=== PATIENT | female | born 1980 | race American Indian/Alaskan Native ===

== ENCOUNTER 2019-11-04 08:29 | Inpatient (IN) | payer OTHER ==
[2019-11-04] MEDS ORDERED: LACTATED RINGERS 1,000 ML ONE (09:34)
[2019-11-04] MEDS: LACTATED RINGERS 1,000 ML IV SCH ×3 (09:40→20:36)
[2019-11-04] MEDS ORDERED: TERBUTALINE 1 MG/1 ML INJ SUB-Q PRN (09:50)
[2019-11-04] MEDS ORDERED: LIDOCAINE (2%) 20 MG/1 ML VIAL 20 ML MDV INFILTRATI NR (09:50)
[2019-11-04] MEDS ORDERED: TERBUTALINE 1 MG/1 ML INJ IVP PRN (09:50)
[2019-11-04] MEDS ORDERED: ePHEDrine SULFATE 50 MG/1 ML INJ IV PRN ×2 (10:00→21:37)
[2019-11-04 10:03] LABS: Hematocrit 34.7 % (30.3-42.9); Hemoglobin 11.9 gm/dl (10.1-14.3); Mean Corpuscular HGB Conc 34 % (30-34); Mean Corpuscular Volume 79 fl (79-97); Platelet Count 142 K/mm3 (140-440); Red Blood Count 4.37 M/mm3 (3.65-5.03); Red Cell Distribution Width 15.2 % (13.2-15.2)
[2019-11-04] MEDS ORDERED: OXYTOCIN DRIP 30 UNITS/500 ML BAG IV SCH (11:00)
--- NOTE | 2019-11-04 13:08 | History and Physical Report ---
History of Present Illness Date of examination: 11/04/19 Date of admission: November 04, 2019 Chief complaint: Induction of labor History of present illness: 39-year-old -0-0-2 at 41+0 weeks who presents for induction of labor secondary to postdates. Her course is complicated by advanced maternal age and a history of a leiomyoma in low borderline platelet count. The patient has been followed during her by maternal- medicine. Past History Past Medical History: other (Sickle cell trait) Past Surgical History: appendectomy Social history: - Obstetrical History Expected Date of Delivery: 10/28/19 Actual Gestation: 41 Week(s) 0 Day(s) : 3 Para: 2 Hx # Term Pregnancies: 2 Number of Pregnancies: 0 Spontaneous Abortions: 0 Induced : 0 Number of Living Children: 2 Medications and Allergies Allergies Allergy/AdvReac Type Severity Reaction Status Date / Time No Known Allergies Allergy Verified 01/06/16 08:29 Home Medications Medication Instructions Recorded Confirmed Last Taken Type Pnv Plus Multivit Tab 1 caplet PO QDAY 11/27/17 11/04/19 11/03/19 History HYDROcodone/APAP 5-325 [[place] 1 each PO Q6HR PRN #30 tablet 11/28/17 11/04/19 Unknown Rx 5/325] Ibuprofen [Motrin] 800 mg PO Q8HR PRN #30 tablet 11/28/17 11/04/19 Unknown Rx Active Meds: Active Medications Ephedrine Sulfate (Ephedrine Sulfate) 10 mg IV Q2M PRN PRN Reason: Hypotension Lactated Ringer's (Lactated Ringers) 1,000 mls @ 125 mls/hr IV DIRECT BEHZAD Last Admin: 11/04/19 09:40 Dose: 125 mls/hr Documented by: Oxytocin/Sodium Chloride (Pitocin/Ns 30 Unit/500ml) 30 units in 500 mls @ 4 mls/hr IV TITR BEHZAD; Protocol Last Titration: 11/04/19 12:32 Dose: 16 mls/hr, 16 mls/hr Documented by: Oxytocin/Sodium Chloride (Pitocin/Ns 20 Unit/1000ml Drip) 20 units in 1,000 mls @ 125 mls/hr IV DIRECT BEHZAD Lidocaine (Xylocaine 2%) 20 ml INFILTRATI ONCE NR Stop: 11/04/19 23:59 Mineral Oil (Mineral Oil) 30 ml PO QHS PRN PRN Reason: Constipation Terbutaline Sulfate (Brethine) 0.25 mg SUB-Q ONCE PRN PRN Reason: Hyperstimulation/Hypertonicity Stop: 11/04/19 23:59 Terbutaline Sulfate (Brethine) 0.25 mg IVP ONCE PRN PRN Reason: Hyperstimulation/Hypertonicity Stop: 11/04/19 23:59 Review of Systems All systems: negative Genitourinary: no vaginal bleeding, no leakage of fluid - Vital Signs Vital signs: Vital Signs Temp Resp 98.1 F 18 11/04/19 08:57 11/04/19 08:57 Temp Pulse Resp BP Pulse Ox 98.1 F 96 H 18 113/65 98 11/04/19 08:57 11/04/19 12:58 11/04/19 08:57 11/04/19 08:59 11/04/19 12:58 - Physical Exam Breasts: Positive: deferred Cardiovascular: Regular rate Lungs: Positive: Clear to auscultation Abdomen: Positive: normal appearance Results Result Diagrams: 11/04/19 09:35 Abnormal lab results 11/04/19 Range/Units 09:35 MCH 27 L (28-32) pg All other labs normal. Assessment and Plan - Patient Problems (1) Post-term Current Visit: Yes Status: Acute Plan to address problem: Admit for induction of labor (2) Advanced maternal age (AMA) in Current Visit: Yes Status: Acute
--- NOTE | 2019-11-04 18:07 | Ultrasound Report ---
Limited second trimester OB ultrasound INDICATION: Evaluate presentation only, labor FINDINGS: There is a single living intrauterine fetus in cephalic presentation. The heart rate is detected at 133 bpm. Signer Name: Nick Merino MD Signed: 11/04/2019 6:02 PM Workstation Name: [id number]
[2019-11-04] MEDS: BUTORPHANOL 2 MG/1 ML INJ IV PRN ×2 (18:22→20:31)
[2019-11-04] MEDS ORDERED: fentaNYL-BUPIV 2 MCG/ML-0.125% 200 MCG/100 ML BAG EPIDURAL ONE (21:02)
[2019-11-04] MEDS ORDERED: DEXMEDETOMIDINE 200 MCG/2 ML VIAL IV ONE (21:02)
--- NOTE | 2019-11-04 21:34 | Anesthesia Consultation ---
Anesthesia Consult and Med Hx Date of service: 11/04/19 - Airway Anesthetic Teeth Evaluation: Good ROM Head & Neck: Adequate Mental/Hyoid Distance: Adequate Mallampati Class: Class II Intubation Access Assessment: Probably Good - Pulmonary Exam CTA: Yes - Cardiac Exam Cardiac Exam: RRR - Pre-Operative Health Status ASA Pre-Surgery Classification: ASA2 Proposed Anesthetic Plan: Epidural - Pulmonary Hx Asthma: No COPD: No Hx Pneumonia: No - Cardiovascular System Hx Hypertension: No - Central Nervous System Hx Seizures: No Hx Psychiatric Problems: No - Endocrine Hx Renal Disease: No Hx End Stage Renal Disease: No Hx Hypothyroidism: No Hx Hyperthyroidism: No - Hematic Hx Anemia: No Hx Sickle Cell Disease: No - Other Systems Hx Alcohol Use: No
[2019-11-04] MEDS ORDERED: NALOXONE 2 MG/2 ML INJ IV PRN (21:37)
--- NOTE | 2019-11-04 21:37 | Progress Note ---
Labor Epidural - Labor Epidural Start Time: 21:04 Stop Time: 20:27 Performed by:: NASRIN SOTO Procedure: Patient is requesting epidural for labor pain. H&P, and labs reviewed. Procedure explained, questions answered, consent obtained. Patient in sitting position with blood pressure cuff and pulse ox on and working. Timeout performed immediately before start of procedure. Sterile betadine prep/drape. 3 mL 1% lidocaine skin wheal unsuccessful attempt at L3-L4 and then success at L2-L3. 18-gauge Touhy epidural needle advanced to [id number] with saline at [7] cm. Epidural dexmedetomidine [30] mcg administered. Epidural catheter advanced to [12] cm, negative aspiration for blood and csf, negative test dose 3 ml 1.5% lidocaine with epinephrine. Sterile steri-strips and tegaderm applied, followed by tape reinforcement. Patient c/o pain during procedure but states she wishes to procede.
[2019-11-04] MEDS ORDERED: fentaNYL-BUPIV 2 MCG/ML-0.125% 200 MCG/100 ML BAG EPIDURAL SCH (22:00)
[2019-11-04] MEDS ORDERED: MINERAL OIL 30 ML ORAL LIQD PO PRN (22:00)
[2019-11-04] MEDS: OXYTOCIN 20 UNIT/1000ML DRIP 20 UNITS/1,000 ML BAG IV SCH (23:25)
[2019-11-04] MEDS ORDERED: HYDROcodone/ACETAMINOPHEN 5-325 MG TAB PO PRN (23:28)
[2019-11-04] MEDS ORDERED: PROMETHAZINE 25 MG RECT SUPP PR PRN (23:28)
[2019-11-04] MEDS ORDERED: ACETAMINOPHEN 325 MG TAB PO PRN (23:28)
[2019-11-04] MEDS ORDERED: WITCH HAZEL/ GLYCERIN PAD TP PRN (23:28)
[2019-11-04] MEDS ORDERED: ONDANSETRON 4 MG/2 ML INJ IV PRN (23:28)
[2019-11-04] MEDS ORDERED: diphenhydrAMINE 25 MG CAP PO PRN (23:28)
[2019-11-04] MEDS ORDERED: PROMETHAZINE 25 MG TAB PO PRN (23:28)
[2019-11-04] MEDS ORDERED: LANOLIN/ZINC/DIMETHICONE (LANSINOH) 7 GM TP PRN (23:28)
[2019-11-04] MEDS ORDERED: MAGNESIUM HYDROXIDE (MOM) ORAL LIQD UDC PO PRN (23:28)
--- NOTE | 2019-11-04 23:31 | Procedure Note ---
OB Delivery Note - Delivery Date of Delivery: 11/04/19 Surgeon: DEEPTI HECTOR Estimated blood loss: 100cc - Vaginal Delivery presentation: vertex Delivery position: OA Intrapartum events: none Delivery augmentation: pitocin Delivery monitor: external FHT, external uterine, internal uterine Route of delivery: Delivery placenta: spontaneous Delivery cord: 3 umbilical vessels Episiotomy: none Delivery laceration: none Anesthesia: epidural Delivery comments: The patient progressed to complete complete +1 and post to deliver a live-born female infant with Apgars of 8 and 9 weight 7 pounds 15 ounces. After delivery of the head the shoulders delivered without difficulty. The cord was clamped and cut x2 and the was placed on the warmer. The placenta delivered spontaneously intact with a three-vessel cord. No lacerations were noted. Estimated blood loss of 100 mL - Infant A at 1 minute: 8 at 5 minutes: 9 Gender: Female (Weight 7 pounds 15 ounces)
[2019-11-05] MEDS: OXYTOCIN 20 UNIT/1000ML DRIP 20 UNITS/1,000 ML BAG IV SCH
[2019-11-05] MEDS: LACTATED RINGERS 1,000 ML IV SCH
[2019-11-05] MEDS: IBUPROFEN 600 MG TAB PO SCH ×3 (06:17→17:25)
--- NOTE | 2019-11-05 07:46 | Progress Note ---
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 P: Routine pp care Discharge to home today or upon discharge Subjective - Subjective Date of service: 11/05/19 Principal diagnosis: s/p Interval history: Pt is PPD1 s/p Patient reports: appetite normal, voiding normally, pain well controlled, ambulating normally [place]: doing well, bottle feeding Objective - Vital Signs Latest vital signs: Vital Signs Temp Pulse Resp BP BP Pulse Ox 11/05/19 01:35 97.8 F 92 H 18 113/75 11/05/19 01:15 98.3 F 11/05/19 00:41 88 130/71 11/05/19 00:26 86 131/72 11/04/19 23:57 91 H 98 11/04/19 23:56 86 125/73 11/04/19 23:52 89 98 11/04/19 23:47 89 98 11/04/19 23:42 89 98 11/04/19 23:41 91 H 95/66 89 11/04/19 23:37 89 99 11/04/19 23:31 94 H 98 11/04/19 23:30 97.6 F 16 11/04/19 23:26 94 H 133/67 98 11/04/19 23:21 94 H 100 11/04/19 23:16 88 100 11/04/19 23:11 96 H 97/65 95 11/04/19 23:06 91 H 99 11/04/19 23:01 90 100 11/04/19 22:56 86 101/66 99 11/04/19 22:51 89 98 11/04/19 22:46 93 H 98 11/04/19 22:41 94 H 95/63 100 11/04/19 22:36 94 H 99 11/04/19 22:31 96 H 100 11/04/19 22:27 94 H 100/60 11/04/19 22:26 94 H 98 11/04/19 22:21 91 H 95 11/04/19 22:16 92 H 97 11/04/19 22:15 90 91/54 11/04/19 22:11 95 H 96/55 96 11/04/19 22:06 98 H 97 11/04/19 22:01 96 H 97 11/04/19 21:56 96 H 106/65 98 05 21:51 100 H 97 11/04/19 21:46 103 H 97 11/04/19 21:45 97.9 F 05 21:41 98 H 97 11/04/19 21:40 94 H 109/61 05 21:37 96 H 107/58 11/04/19 21:36 98 H 98 11/04/19 21:34 100 H 116/65 05 21:31 105 H 99 11/04/19 21:26 102 H 100 11/04/19 21:21 101 H 98 11/04/19 21:16 98 H 100 11/04/19 21:11 103 H 99 11/04/19 21:06 106 H 100 11/04/19 20:59 99 H 134/75 11/04/19 20:33 106 H 100 11/04/19 20:31 95 H 86 11/04/19 20:28 102 H 98 11/04/19 20:23 106 H 99 11/04/19 20:18 102 H 100 11/04/19 19:49 93 H 119/70 11/04/19 19:32 94 H 100 11/04/19 19:27 102 H 100 11/04/19 19:15 98.1 F 16 11/04/19 18:22 18 11/04/19 17:19 105 H 99 11/04/19 17:18 100 H 127/64 11/04/19 17:14 105 H 100 11/04/19 17:09 110 H 72 L 11/04/19 17:05 106 H 93 11/04/19 17:04 102 H 99 11/04/19 16:59 99 H 99 11/04/19 16:54 102 H 99 11/04/19 16:49 102 H 99 05 16:44 94 H 100 11/04/19 16:39 103 H 98 11/04/19 16:34 107 H 98 11/04/19 16:29 97 H 98 11/04/19 16:24 98 H 99 05 16:19 99 H 99 11/04/19 16:14 100 H 98 11/04/19 16:09 100 H 100 05 16:04 98 H 99 05 15:59 100 H 99 05 15:58 90 89 05 15:54 105 H 96 05 15:49 103 H 99 05 15:46 109 H 81 L 05 15:44 102 H 99 05 15:39 102 H 99 05 15:34 98 H 98 05 15:29 98 H 100 11/04/19 15:24 97 H 99 11/04/19 15:19 94 H 99 11/04/19 15:14 99 H 98 11/04/19 15:09 98 H 98 11/04/19 15:06 98.0 F 11/04/19 12:58 96 H 98 11/04/19 12:57 90 90 11/04/19 12:53 88 98 11/04/19 12:48 89 98 11/04/19 12:43 102 H 100 11/04/19 12:38 92 H 99 11/04/19 12:33 88 100 11/04/19 12:28 88 99 11/04/19 12:23 90 99 11/04/19 12:18 90 99 05 12:13 90 100 11/04/19 12:08 94 H 99 11/04/19 12:03 84 100 11/04/19 11:58 93 H 99 11/04/19 11:53 90 99 11/04/19 11:48 88 97 11/04/19 11:43 96 H 97 11/04/19 11:38 90 98 11/04/19 11:33 101 H 97 11/04/19 11:28 91 H 97 11/04/19 11:23 97 H 97 11/04/19 11:18 91 H 97 05 11:13 100 H 96 11/04/19 11:08 100 H 97 11/04/19 11:04 104 H 92 05 11:03 90 05 10:58 113 H 98 11/04/19 10:53 104 H 98 05 10:48 101 H 97 05 10:43 96 H 98 05 10:38 105 H 99 05 10:23 93 H 99 05 10:18 102 H 98 11/04/19 10:13 96 H 99 11/04/19 10:08 95 H 99 11/04/19 10:03 94 H 100 11/04/19 09:58 97 H 97 11/04/19 09:53 97 H 97 11/04/19 09:48 98 H 97 11/04/19 09:43 97 H 97 11/04/19 09:38 96 H 96 11/04/19 09:33 98 H 97 11/04/19 09:28 97 H 97 11/04/19 09:23 107 H 97 11/04/19 09:18 102 H 97 11/04/19 09:13 91 H 96 11/04/19 09:08 98 H 97 11/04/19 09:03 109 H 98 11/04/19 08:59 100 H 113/65 11/04/19 08:58 109 H 98 11/04/19 08:57 98.1 F 18 Intake and Output 11/04/19 11/04/19 11/05/19 15:59 23:59 07:59 Intake Total 32.201 1794.467 312.917 Output Total 900 1300 Balance 32.201 894.467 -987.083 Intake: IV 32.201 1794.467 72.917 Lactated Ringers 1,000 ml 1666.667 @ 125 mls/hr IV DIRECT BEHZAD Rx#:[id number] PITOCin/NS 20 UNIT/1000ML 72.917 DRIP 20 units In 1,000 ml @ 125 mls/hr IV DIRECT BEHZAD Rx#:[id number] PITOCin/NS 30 UNIT/500ML 32.201 127.8 30 units In 500 ml @ 4 mls/hr IV TITR BEHAZD Rx#: [id number] Oral 240 Output: Urine 900 700 Indwelling Catheter 300 Void 600 700 Other 600 Other: Total, Intake Amount 240 Total, Output Amount 300 600 # Voids Void 1 1 Weight 250 lb Estimated Blood Loss 100 - Exam Lungs: Present: Normal air movement Abdomen: Present: soft. Absent: distention Uterus: Present: firm, fundal height below umbilicus. Absent: bogginess Extremities: Present: normal - Labs Labs: Abnormal lab results 11/04/19 Range/Units 09:35 MCH 27 L (28-32) pg
--- NOTE | 2019-11-05 07:48 | Discharge Summary ---
Providers - Providers Date of Admission: 11/04/19 23:28 Date of discharge: 11/05/19 Attending physician: DEEPTI HECTOR Primary care physician: DEEPTI HECTOR Hospitalization Reason for admission: induction of labor (post-dates), IUP at term Delivery: Episiotomy: none Laceration: none Other procedures: none complications: none Discharge diagnosis: IUP at term delivered Hospital course: Pt arrived for induction of labor and progressed to . course uncomplicated. Condition at discharge: Good Disposition: DC-01 TO HOME OR SELFCARE Plan - Discharge Medications Prescriptions: Ibuprofen [Motrin 600 MG tab] 600 mg PO Q6HR #90 tablet - Provider Discharge Summary Activity: routine, no sex for 6 weeks, no heavy lifting 4 weeks, no strenuous exercise Diet: routine Instructions: routine Additional instructions: [] Smoking cessation referral if applicable(refer to patient education folder for contact #) [] Refer to [facility] Booklet Call your doctor immediately for: * Fever > 100.5 * Heavy vaginal bleeding ( >1 pad per hour) * Severe persistent headache * Shortness of breath * Reddened, hot, painful area to leg or breast * Drainage or odor from incision. * Keep incision clean and dry at all times and follow doctor's instructions regarding bathing/showering - Follow up plan Follow up: DEEPTI HECTOR MD [Primary Care Provider] - 14 Days (Please call [facility] to schedule appointment.)
[2019-11-05 13:41] LABS: Hematocrit 34.4 % (30.3-42.9); Hemoglobin 11.4 gm/dl (10.1-14.3)
--- NOTE | 2019-11-05 15:59 | Post Anesthesia Evaluation ---
- Post Anesthesia Evaluation Patient Participated: Yes Airway Patent: Yes Stable Respiratory Function: Yes Nausea/Vomiting: No Temp > 96.8F: Yes Pain Manageable: Yes Adequeate Hydration: Yes Anesthesia Complications: No Block Receding Appropriately: Yes
[2019-11-06] MEDS: IBUPROFEN 600 MG TAB PO SCH ×3 (00:20→14:10)
[2019-11-06 13:05] VITALS: BP 126/82
== END 2019-11-06 15:05 | disposition home or self-care (01) | DRG 807 ==
LOC: TRG 08:29 → LD 08:30 → TRG 23:28 → OB 11-05 01:22
PROVIDERS: ADMIT Obstetrics & Gynecology; ATTEND Obstetrics & Gynecology
PROC: 10E0XZZ Delivery of Products of Conception, External Approach (ICD-10-PCS; principal; 2019-11-04)
PROC: 3E0R3BZ Introduction of Anesthetic Agent into Spinal Canal, Percutaneous Approach (ICD-10-PCS; 2019-11-04)
PROC: 00HU33Z Insertion of Infusion Device into Spinal Canal, Percutaneous Approach (ICD-10-PCS; 2019-11-04)
DX: O48.0 Post-term pregnancy (principal); Z37.0 Single live birth; Z3A.41 41 weeks gestation of pregnancy; Z90.49 Acquired absence of other specified parts of digestive tract
CPT/HCPCS: 36415; 76815; 85014; 85018; 85027; 86592; 86850; 86900; 86901; G0378; J0595; J2590; J3490; J7120

== ENCOUNTER 2021-12-15 08:23 | Inpatient (IN) | payer OTHER ==
--- NOTE | 2021-12-15 08:40 | History and Physical Report ---
History of Present Illness Date of examination: 12/15/21 Date of admission: 12/15/21 08:23 Chief complaint: IOL secondary to GDM; LGA History of present illness: 41yo, @ 38.4 wks, initiated care with [facility] glass cut off tender at 11.4 wks gestation. has been complicated by GDM (non-compliant with glucose monitoring, does not accept diagnosis), +anti-M Ab screen (initial titer 0, declined repeat at 28 wks), AMA, uterine fibroid, LGA fetus, sickle cell trait and obesity. Presents to [facility] for scheduled IOL secondary to GDM, LGA and obesity. Reports +FM. Denies any VB or LOF. Labs: A+, antibody positive; rubella immune; VDRL negative; urine culture negative; HBsAg negative; HIV negative; HSV2 negative; GC/Chlamydia/Trichomonas negative; 1 hr gtt - 193, 3 hr gtt - 76, 189, 160, 109; GBS negative. Past History Past Medical History: no pertinent history Past Surgical History: appendectomy (1997) Family/Genetic History: diabetes (Mother) Social history: , lives with family, full code. denies: smoking, alcohol abuse, prescription drug abuse, IV drug use - Obstetrical History Expected Date of Delivery: 12/25/21 Actual Gestation: 38 Week(s) 4 Day(s) : 4 Para: 3 Hx # Term Pregnancies: 3 Number of Pregnancies: 0 Spontaneous Abortions: 0 Induced : 0 Number of Living Children: 3 #1 year: 2,017 Birthweight: 3.118 kg Method of Delivery: Vaginal Gestational age at delivery: 39 Complications: none #2 year: 2,018 Birthweight: 4.252 kg Method of Delivery: Vaginal Gestational age at delivery: 40 Complications: none, other (LGA) #3 year: 2,020 Method of Delivery: Vaginal Gestational age at delivery: 40 Complications: none Medications and Allergies Allergies Allergy/AdvReac Type Severity Reaction Status Date / Time No Known Allergies Allergy Verified 01/06/16 08:29 Home Medications Medication Instructions Recorded Confirmed Last Taken Type Pnv Plus Multivit Tab 1 caplet PO QDAY 11/27/17 11/04/19 11/03/19 History HYDROcodone/APAP 5-325 [[place] 1 each PO Q6HR PRN #30 tablet 11/28/17 11/04/19 Unknown Rx 5/325] Ibuprofen [Motrin] 800 mg PO Q8HR PRN #30 tablet 11/28/17 11/04/19 Unknown Rx Ibuprofen [Motrin 600 MG tab] 600 mg PO Q6HR #90 tablet 11/05/19 Unknown Rx Docusate Sodium [Colace] 100 mg PO BID PRN #60 capsule 11/06/19 Unknown Rx Ferrous Sulfate [Feosol 325 MG tab] 325 mg PO BID #60 tablet 11/06/19 Unknown Rx - Physical Exam Breasts: Positive: normal Cardiovascular: Regular rate Lungs: Positive: Normal air movement Abdomen: Positive: other (gravid) Genitourinary (Female): Positive: normal external genitalia, normal perenium Uterus: Positive: enlarged (S>D) Anus/Rectum: Positive: normal perianal skin Extremities: Positive: edema - Obstetrical FHR: category 1 Uterine Contraction Monitor Mode: External Cervical Dilatation: 3 (vertex) Cervical Effacement Percentage: 50 station: -3 Uterine Contraction Frequency (min): 4-5 Uterine Contraction Pattern: Irregular Uterine Tone Measurement Phase: Resting Uterine Contraction Intensity: Mild Results All other labs normal. Assessment and Plan - Patient Problems (1) GDM (gestational diabetes mellitus) Current Visit: Yes Status: Acute Qualifiers: Gestational diabetes mellitus control: unspecified Trimester: third trimester Qualified Code(s): O24.419 - Gestational diabetes mellitus in , unspecified control Plan to address problem: Refused blood glucose monitoring since diagnoses IOL, Pitocin titration as tolerated Pain meds as desired per orders Anticipate (2) Obesity affecting Current Visit: Yes Status: Acute (3) Advanced maternal age (AMA) in Current Visit: No Status: Acute (4) LGA (large for gestational age) fetus Current Visit: Yes Status: Acute (5) Sickle cell trait Current Visit: Yes Status: Acute
[2021-12-15] MEDS ORDERED: CARBOPROST TROMETHAMINE 250 MCG/1 ML INJ IM PRN (09:30)
[2021-12-15] MEDS ORDERED: ACETAMINOPHEN 325 MG TAB PO PRN (09:30)
[2021-12-15] MEDS ORDERED: ePHEDrine SULFATE 50 MG/1 ML INJ IV PRN (09:30)
[2021-12-15] MEDS ORDERED: TERBUTALINE 1 MG/1 ML INJ SUB-Q PRN (09:30)
[2021-12-15] MEDS ORDERED: METHYLERGONOVINE MALEATE 0.2 MG/ML VIAL IM PRN (09:30)
[2021-12-15] MEDS ORDERED: ONDANSETRON 4 MG/2 ML INJ IV PRN (09:30)
[2021-12-15] MEDS ORDERED: fentaNYL 100 MCG/2 ML INJ IV PRN (09:30)
[2021-12-15] MEDS ORDERED: miSOPROStol 200 MCG TAB PR PRN (09:30)
[2021-12-15] MEDS ORDERED: LOPERAMIDE 2 MG CAP PO PRN (09:30)
[2021-12-15] MEDS ORDERED: BUTORPHANOL 2 MG/1 ML INJ IV PRN (09:30)
[2021-12-15] MEDS ORDERED: OXYTOCIN 10 UNIT/1 ML INJ IM PRN (10:00)
[2021-12-15] MEDS ORDERED: OXYTOCIN DRIP 30 UNITS/500 ML BAG IV SCH ×2 (10:00)
[2021-12-15] MEDS ORDERED: LIDOCAINE (2%) 20 MG/1 ML VIAL 20 ML MDV INFILTRATI SCH (10:00)
[2021-12-15] MEDS: LACTATED RINGERS 1,000 ML IV SCH ×2 (10:19→18:16)
[2021-12-15 10:27] LABS: Hematocrit 33.5 % (30.3-42.9); Hemoglobin 10.6 gm/dl (10.1-14.3); Mean Corpuscular HGB Conc 32 % (30-34); Mean Corpuscular Volume 75 fl (79-97); Platelet Count 146 K/mm3 (140-440); Red Blood Count 4.46 M/mm3 (3.65-5.03); Red Cell Distribution Width 16.3 % (13.2-15.2)
--- NOTE | 2021-12-15 19:59 | Progress Note ---
Assessment and Plan - Patient Problems (1) GDM (gestational diabetes mellitus) Current Visit: Yes Status: Acute Qualifiers: Gestational diabetes mellitus control: unspecified Trimester: third trimester Qualified Code(s): O24.419 - Gestational diabetes mellitus in , unspecified control Plan to address problem: Pt declines to take a Pitocin break and eat at this time She wishes to continue titration as tolerated Pain meds as desired per orders Continue to closely monitor maternal/ wellbeing (2) Obesity affecting Current Visit: Yes Status: Acute (3) Advanced maternal age (AMA) in Current Visit: No Status: Acute (4) LGA (large for gestational age) fetus Current Visit: Yes Status: Acute (5) Sickle cell trait Current Visit: Yes Status: Acute Subjective - Subjective Date of service: 12/15/21 Principal diagnosis: IOL;GDM; MO Interval history: 41yo, @ 38.4 wks, initiated care with [facility] lens cementer at 11.4 wks gestation. has been complicated by GDM (non-compliant with glucose monitoring, does not accept diagnosis), +anti-M Ab screen (initial titer 0, declined repeat at 28 wks), AMA, uterine fibroid, LGA fetus, sickle cell trait and obesity. Presents to [facility] for scheduled IOL secondary to GDM, LGA and obesity. Reports +FM. Denies any VB or LOF. Labs: A+, antibody positive; rubella immune; VDRL negative; urine culture negative; HBsAg negative; HIV negative; HSV2 negative; GC/Chlamydia/Trichomonas negative; 1 hr gtt - 193, 3 hr gtt - 76, 189, 160, 109; GBS negative. Patient reports: movement normal, contractions ("they are light"), no new complaints, no vaginal bleeding Objective - Vital Signs Vital Signs: Vital Signs - 12hr 12/15/21 12/15/21 12/15/21 09:03 09:05 09:11 Temperature Pulse Rate 103 H 78 Respiratory Rate Blood Pressure 117/65 O2 Sat by Pulse 80 L 90 Oximetry O2 Sat by Pulse Oximetry [ Bilateral Throughout] 12/15/21 12/15/21 12/15/21 09:14 09:19 09:24 Temperature Pulse Rate 101 H 103 H 104 H Respiratory Rate Blood Pressure O2 Sat by Pulse 87 97 99 Oximetry O2 Sat by Pulse Oximetry [ Bilateral Throughout] 12/15/21 12/15/21 12/15/21 09:29 09:34 09:39 Temperature Pulse Rate 102 H 104 H 105 H Respiratory Rate Blood Pressure 110/55 O2 Sat by Pulse 97 98 97 Oximetry O2 Sat by Pulse Oximetry [ Bilateral Throughout] 12/15/21 12/15/21 12/15/21 09:44 09:49 09:54 Temperature Pulse Rate 103 H 96 H 97 H Respiratory Rate Blood Pressure O2 Sat by Pulse 97 97 96 Oximetry O2 Sat by Pulse Oximetry [ Bilateral Throughout] 12/15/21 12/15/21 12/15/21 09:59 10:04 10:08 Temperature Pulse Rate 101 H 102 H 100 H Respiratory Rate Blood Pressure 127/81 O2 Sat by Pulse 97 97 Oximetry O2 Sat by Pulse Oximetry [ Bilateral Throughout] 12/15/21 12/15/21 12/15/21 10:09 10:14 10:19 Temperature Pulse Rate 101 H 98 H 102 H Respiratory Rate Blood Pressure O2 Sat by Pulse 96 98 98 Oximetry O2 Sat by Pulse Oximetry [ Bilateral Throughout] 12/15/21 12/15/21 12/15/21 10:24 10:29 10:34 Temperature Pulse Rate 106 H 101 H 107 H Respiratory Rate Blood Pressure O2 Sat by Pulse 98 97 99 Oximetry O2 Sat by Pulse Oximetry [ Bilateral Throughout] 12/15/21 12/15/21 12/15/21 10:39 10:44 10:49 Temperature Pulse Rate 102 H 103 H 100 H Respiratory Rate Blood Pressure 129/74 O2 Sat by Pulse 97 97 97 Oximetry O2 Sat by Pulse Oximetry [ Bilateral Throughout] 12/15/21 12/15/21 12/15/21 10:54 10:59 11:00 Temperature Pulse Rate 99 H 102 H Respiratory Rate Blood Pressure O2 Sat by Pulse 98 98 Oximetry O2 Sat by Pulse 98 Oximetry [ Bilateral Throughout] 12/15/21 12/15/21 12/15/21 11:04 11:09 11:10 Temperature Pulse Rate 100 H 101 H 100 H Respiratory Rate Blood Pressure 120/65 O2 Sat by Pulse 97 98 Oximetry O2 Sat by Pulse Oximetry [ Bilateral Throughout] 12/15/21 12/15/21 12/15/21 11:14 11:19 11:24 Temperature Pulse Rate 104 H 104 H 102 H Respiratory Rate Blood Pressure O2 Sat by Pulse 98 99 98 Oximetry O2 Sat by Pulse Oximetry [ Bilateral Throughout] 12/15/21 12/15/21 12/15/21 11:29 11:34 11:38 Temperature Pulse Rate 98 H 99 H 100 H Respiratory Rate Blood Pressure 131/78 O2 Sat by Pulse 97 99 Oximetry O2 Sat by Pulse Oximetry [ Bilateral Throughout] 12/15/21 12/15/21 12/15/21 11:39 11:44 11:49 Temperature Pulse Rate 100 H 101 H 95 H Respiratory Rate Blood Pressure O2 Sat by Pulse 98 98 96 Oximetry O2 Sat by Pulse Oximetry [ Bilateral Throughout] 12/15/21 12/15/21 12/15/21 11:54 11:59 12:01 Temperature Pulse Rate 102 H 99 H 80 Respiratory Rate Blood Pressure O2 Sat by Pulse 97 97 79 L Oximetry O2 Sat by Pulse Oximetry [ Bilateral Throughout] 12/15/21 12/15/21 12/15/21 12:08 12:11 12:13 Temperature Pulse Rate 77 103 H Respiratory Rate Blood Pressure 130/68 O2 Sat by Pulse 89 78 L Oximetry O2 Sat by Pulse Oximetry [ Bilateral Throughout] 12/15/21 12/15/21 12/15/21 12:16 12:21 12:26 Temperature Pulse Rate 103 H 97 H 96 H Respiratory Rate Blood Pressure O2 Sat by Pulse 97 96 96 Oximetry O2 Sat by Pulse Oximetry [ Bilateral Throughout] 12/15/21 12/15/21 12/15/21 12:31 12:36 12:39 Temperature Pulse Rate 101 H 104 H 100 H Respiratory Rate Blood Pressure 118/75 O2 Sat by Pulse 97 97 Oximetry O2 Sat by Pulse Oximetry [ Bilateral Throughout] 12/15/21 12/15/21 12/15/21 12:41 12:46 12:51 Temperature Pulse Rate 96 H 101 H 96 H Respiratory Rate Blood Pressure O2 Sat by Pulse 97 98 95 Oximetry O2 Sat by Pulse Oximetry [ Bilateral Throughout] 12/15/21 12/15/21 12/15/21 12:56 12:57 13:01 Temperature Pulse Rate 98 H 96 H 103 H Respiratory Rate Blood Pressure O2 Sat by Pulse 95 93 96 Oximetry O2 Sat by Pulse Oximetry [ Bilateral Throughout] 12/15/21 12/15/21 12/15/21 13:05 13:06 13:08 Temperature Pulse Rate 102 H 101 H 92 H Respiratory Rate Blood Pressure 120/75 O2 Sat by Pulse 94 98 Oximetry O2 Sat by Pulse Oximetry [ Bilateral Throughout] 12/15/21 12/15/21 12/15/21 13:11 13:16 13:17 Temperature 98.3 F Pulse Rate 111 H 96 H Respiratory 16 Rate Blood Pressure O2 Sat by Pulse 97 96 97 Oximetry O2 Sat by Pulse Oximetry [ Bilateral Throughout] 12/15/21 12/15/21 12/15/21 13:20 13:21 13:26 Temperature Pulse Rate 101 H 105 H 103 H Respiratory Rate Blood Pressure O2 Sat by Pulse 94 98 97 Oximetry O2 Sat by Pulse Oximetry [ Bilateral Throughout] 12/15/21 12/15/21 12/15/21 13:31 13:32 13:36 Temperature Pulse Rate 101 H 99 H 102 H Respiratory Rate Blood Pressure O2 Sat by Pulse 95 94 97 Oximetry O2 Sat by Pulse Oximetry [ Bilateral Throughout] 12/15/21 12/15/21 12/15/21 13:39 13:41 13:46 Temperature Pulse Rate 95 H 96 H 101 H Respiratory Rate Blood Pressure 113/61 O2 Sat by Pulse 96 96 Oximetry O2 Sat by Pulse Oximetry [ Bilateral Throughout] 12/15/21 12/15/21 12/15/21 13:51 13:56 14:01 Temperature Pulse Rate 95 H 103 H 98 H Respiratory Rate Blood Pressure O2 Sat by Pulse 96 96 97 Oximetry O2 Sat by Pulse Oximetry [ Bilateral Throughout] 12/15/21 12/15/21 12/15/21 14:06 14:16 14:21 Temperature Pulse Rate 105 H 113 H 107 H Respiratory Rate Blood Pressure O2 Sat by Pulse 98 97 97 Oximetry O2 Sat by Pulse Oximetry [ Bilateral Throughout] 12/15/21 12/15/21 12/15/21 14:26 14:31 14:36 Temperature Pulse Rate 102 H 98 H 95 H Respiratory Rate Blood Pressure O2 Sat by Pulse 95 98 97 Oximetry O2 Sat by Pulse Oximetry [ Bilateral Throughout] 12/15/21 12/15/21 12/15/21 14:40 14:41 14:46 Temperature Pulse Rate 93 H 97 H 102 H Respiratory Rate Blood Pressure 124/58 O2 Sat by Pulse 98 97 Oximetry O2 Sat by Pulse Oximetry [ Bilateral Throughout] 12/15/21 12/15/21 12/15/21 14:51 14:56 15:01 Temperature Pulse Rate 105 H 103 H 108 H Respiratory Rate Blood Pressure O2 Sat by Pulse 97 97 97 Oximetry O2 Sat by Pulse Oximetry [ Bilateral Throughout] 12/15/21 12/15/21 12/15/21 15:06 15:08 15:11 Temperature Pulse Rate 113 H 105 H 116 H Respiratory Rate Blood Pressure 138/79 O2 Sat by Pulse 98 99 Oximetry O2 Sat by Pulse Oximetry [ Bilateral Throughout] 12/15/21 12/15/21 12/15/21 15:14 15:20 15:23 Temperature Pulse Rate 87 83 101 H Respiratory Rate Blood Pressure 121/63 O2 Sat by Pulse 87 84 Oximetry O2 Sat by Pulse Oximetry [ Bilateral Throughout] 12/15/21 12/15/21 12/15/21 15:25 15:30 15:35 Temperature Pulse Rate 101 H 105 H 110 H Respiratory Rate Blood Pressure O2 Sat by Pulse 100 99 99 Oximetry O2 Sat by Pulse Oximetry [ Bilateral Throughout] 12/15/21 12/15/21 12/15/21 15:39 15:40 15:45 Temperature Pulse Rate 110 H 104 H 105 H Respiratory Rate Blood Pressure 119/77 O2 Sat by Pulse 97 98 Oximetry O2 Sat by Pulse Oximetry [ Bilateral Throughout] 12/15/21 12/15/21 12/15/21 15:50 15:55 16:00 Temperature Pulse Rate 102 H 114 H 112 H Respiratory Rate Blood Pressure O2 Sat by Pulse 98 99 99 Oximetry O2 Sat by Pulse Oximetry [ Bilateral Throughout] 12/15/21 12/15/21 12/15/21 16:05 16:09 16:10 Temperature Pulse Rate 109 H 107 H 111 H Respiratory Rate Blood Pressure 143/75 O2 Sat by Pulse 98 98 Oximetry O2 Sat by Pulse Oximetry [ Bilateral Throughout] 12/15/21 12/15/21 12/15/21 16:15 16:20 16:30 Temperature 97.7 F Pulse Rate 109 H 104 H Respiratory 20 Rate Blood Pressure O2 Sat by Pulse 99 99 Oximetry O2 Sat by Pulse Oximetry [ Bilateral Throughout] 12/15/21 12/15/21 12/15/21 16:32 16:37 16:39 Temperature Pulse Rate 100 H 107 H 100 H Respiratory Rate Blood Pressure 102/57 O2 Sat by Pulse 99 94 Oximetry O2 Sat by Pulse Oximetry [ Bilateral Throughout] 12/15/21 12/15/21 12/15/21 16:42 16:47 16:51 Temperature Pulse Rate 96 H 107 H 107 H Respiratory Rate Blood Pressure O2 Sat by Pulse 97 97 81 L Oximetry O2 Sat by Pulse Oximetry [ Bilateral Throughout] 12/15/21 12/15/21 12/15/21 16:52 16:57 17:01 Temperature Pulse Rate 110 H 104 H 107 H Respiratory Rate Blood Pressure O2 Sat by Pulse 99 98 86 Oximetry O2 Sat by Pulse Oximetry [ Bilateral Throughout] 12/15/21 12/15/21 12/15/21 17:02 17:07 17:08 Temperature Pulse Rate 101 H 79 77 Respiratory Rate Blood Pressure O2 Sat by Pulse 77 L 79 L 82 L Oximetry O2 Sat by Pulse Oximetry [ Bilateral Throughout] 12/15/21 12/15/21 12/15/21 17:10 17:12 17:17 Temperature Pulse Rate 100 H 97 H 98 H Respiratory Rate Blood Pressure 135/59 O2 Sat by Pulse 97 95 Oximetry O2 Sat by Pulse Oximetry [ Bilateral Throughout] 12/15/21 12/15/21 12/15/21 17:22 17:27 17:32 Temperature Pulse Rate 99 H 97 H 107 H Respiratory Rate Blood Pressure O2 Sat by Pulse 96 95 96 Oximetry O2 Sat by Pulse Oximetry [ Bilateral Throughout] 12/15/21 12/15/21 12/15/21 17:37 17:39 17:42 Temperature Pulse Rate 105 H 100 H 102 H Respiratory Rate Blood Pressure 121/70 O2 Sat by Pulse 97 95 Oximetry O2 Sat by Pulse Oximetry [ Bilateral Throughout] 12/15/21 12/15/21 12/15/21 17:43 17:47 17:49 Temperature Pulse Rate 103 H 108 H 104 H Respiratory Rate Blood Pressure O2 Sat by Pulse 94 94 94 Oximetry O2 Sat by Pulse Oximetry [ Bilateral Throughout] 12/15/21 12/15/21 12/15/21 17:52 17:56 17:57 Temperature Pulse Rate 99 H 100 H 99 H Respiratory Rate Blood Pressure O2 Sat by Pulse 98 94 95 Oximetry O2 Sat by Pulse Oximetry [ Bilateral Throughout] 12/15/21 12/15/21 12/15/21 18:02 18:07 18:09 Temperature Pulse Rate 99 H 107 H 104 H Respiratory Rate Blood Pressure 143/80 O2 Sat by Pulse 98 97 Oximetry O2 Sat by Pulse Oximetry [ Bilateral Throughout] 12/15/21 12/15/21 12/15/21 18:12 18:17 18:22 Temperature Pulse Rate 104 H 108 H 107 H Respiratory Rate Blood Pressure O2 Sat by Pulse 98 96 96 Oximetry O2 Sat by Pulse Oximetry [ Bilateral Throughout] 12/15/21 12/15/21 12/15/21 18:23 18:27 18:31 Temperature Pulse Rate 105 H 108 H 103 H Respiratory Rate Blood Pressure O2 Sat by Pulse 94 97 94 Oximetry O2 Sat by Pulse Oximetry [ Bilateral Throughout] 12/15/21 12/15/21 12/15/21 18:32 18:37 18:40 Temperature Pulse Rate 108 H 114 H 110 H Respiratory Rate Blood Pressure 130/77 O2 Sat by Pulse 95 97 Oximetry O2 Sat by Pulse Oximetry [ Bilateral Throughout] 12/15/21 12/15/21 12/15/21 18:42 18:47 18:52 Temperature Pulse Rate 111 H 109 H 111 H Respiratory Rate Blood Pressure O2 Sat by Pulse 97 97 96 Oximetry O2 Sat by Pulse Oximetry [ Bilateral Throughout] 12/15/21 12/15/21 12/15/21 18:54 18:57 19:02 Temperature Pulse Rate 105 H 105 H 109 H Respiratory Rate Blood Pressure O2 Sat by Pulse 94 95 96 Oximetry O2 Sat by Pulse Oximetry [ Bilateral Throughout] 12/15/21 12/15/21 12/15/21 19:07 19:10 19:12 Temperature Pulse Rate 107 H 110 H 109 H Respiratory Rate Blood Pressure 140/58 O2 Sat by Pulse 97 97 Oximetry O2 Sat by Pulse Oximetry [ Bilateral Throughout] 12/15/21 12/15/21 12/15/21 19:17 19:39 19:44 Temperature Pulse Rate 109 H 112 H 110 H Respiratory Rate Blood Pressure 136/71 O2 Sat by Pulse 98 97 Oximetry O2 Sat by Pulse Oximetry [ Bilateral Throughout] 12/15/21 19:49 Temperature Pulse Rate 109 H Respiratory Rate Blood Pressure O2 Sat by Pulse 97 Oximetry O2 Sat by Pulse Oximetry [ Bilateral Throughout] - Exam Breasts: deferred Cardiovascular: Regular rate Lungs: Normal air movement Cervical Dilatation: 4 (vertex) Cervical Effacement Percentage: 50 (Pitocin@ 14mu/min) station: -3 Uterine Contraction Frequency (min): 2-3 Uterine Contraction Pattern: Regular Uterine Tone Measurement Phase: Resting Uterine Contraction Intensity: Mild - Labs Labs: Abnormal Labs 12/15/21 12/15/21 09:20 10:45 MCV 75 L MCH 24 L RDW 16.3 H SARS-CoV-2 (PCR) Positive A Laboratory Results - last 24 hr 12/15/21 12/15/21 12/15/21 09:20 09:20 10:45 WBC 7.1 RBC 4.46 Hgb 10.6 Hct 33.5 MCV 75 L MCH 24 L MCHC 32 RDW 16.3 H Plt Count 146 POC Glucose SARS-CoV-2 (PCR) Positive A Blood Type A POSITIVE Antibody Screen Negative 12/15/21 10:55 WBC RBC Hgb Hct MCV MCH MCHC RDW Plt Count POC Glucose 92 SARS-CoV-2 (PCR) Blood Type Antibody Screen
[2021-12-15] MEDS ORDERED: MINERAL OIL 30 ML ORAL LIQD PO PRN (22:00)
[2021-12-16] MEDS: LACTATED RINGERS 1,000 ML IV SCH ×2 (02:34→09:10)
[2021-12-16] MEDS ORDERED: fentaNYL-BUPIV 2 MCG/ML-0.125% 200 MCG/100 ML BAG EPIDURAL SCH ×2 (15:06→21:00)
[2021-12-16] MEDS ORDERED: NALOXONE 0.4 MG/1 ML INJ IV PRN ×3 (15:06→20:06)
[2021-12-16] MEDS ORDERED: ePHEDrine SULFATE 50 MG/1 ML INJ IV PRN (15:06)
[2021-12-16] MEDS ORDERED: SODIUM CHLORIDE P/F VIAL 10 ML 10 ML ONE (15:10)
[2021-12-16] MEDS ORDERED: BUPIVACAINE/PF (0.25%) 2.5 MG/ML 10 ML VIAL INFILTRATI ONE ×2 (15:10→15:58)
--- NOTE | 2021-12-16 15:41 | Anesthesia Consultation ---
Anesthesia Consult and Med Hx Date of service: 12/16/21 - Airway Anesthetic Teeth Evaluation: Good ROM Head & Neck: Adequate Mental/Hyoid Distance: Adequate Mallampati Class: Class II Intubation Access Assessment: Probably Good - Pulmonary Exam CTA: Yes - Cardiac Exam Cardiac Exam: RRR - Pre-Operative Health Status ASA Pre-Surgery Classification: ASA2 Proposed Anesthetic Plan: Epidural - Pulmonary Hx Smoking: No Hx Asthma: No Hx Respiratory Symptoms: No SOB: No COPD: No Home Oxygen Therapy: No Hx Pneumonia: No Hx Sleep Apnea: No - Cardiovascular System Hx Hypertension: No Hx Coronary Artery Disease: No Hx Heart Attack/AMI: No Hx Angina: No Hx Percutaneous Transluminal Coronary Angioplasty (PTCA): No Hx Cardia Arrhythmia: No Hx Pacemaker: No Hx Internal Defibrillator: No Hx Valvular Heart Disease: No Hx Heart Murmur: No Hx Peripheral Vascular Disease: No - Central Nervous System Hx Neuromuscular Disorder: No Hx Seizures: No CVA: No Hx Back Pain: No Hx Psychiatric Problems: No - Gastrointestinal Hx Ulcer: No Hx Gastroesophageal Reflux Disease: No - Endocrine Hx Renal Disease: No Hx End Stage Renal Disease: No Hx Cirrhosis: No Hx Liver Disease: No Hx Insulin Dependent Diabetes: No Hx Non-Insulin Dependent Diabetes: No Hx Thyroid Disease: No Hx Hypothyroidism: No Hx Hyperthyroidism: No - Hematic Hx Anemia: No Hx Sickle Cell Disease: No (trait) - Other Systems Hx Alcohol Use: No Hx Substance Use: No Hx Cancer: No Hx Obesity: No
--- NOTE | 2021-12-16 15:41 | Anesthesia Day of Surgery ---
Anesthesia Day of Surgery - Day of Surgery Patient Examined: Yes Patient H&P Reviewed: Yes Patient is NPO: Yes Beta Blockers: No Cardiac Clearance: No Pulmonary Clearance: No Jaylan's Test: N/A
--- NOTE | 2021-12-16 15:42 | Progress Note ---
Labor Epidural - Labor Epidural Start Time: 15:31 Stop Time: 15:36 Performed by:: DEBORAH COOL Procedure: Epidural Requested for Labor Pain. H&P and PT Chart reviewed and consent obtained. Time out performed and the procedure was explained, all questions answered. Patient was placed in a sitting position with monitors applied. The PTs back was prepped and draped in usual sterile fashion. The Skin was localized with 3 mL of 1% lidocaine at L3-L4. A 17-gauge Touhy epidural needle was advanced to ANN with saline at 7 cm and no blood/CSF was noted via epidural needle. Epidural catheter was advanced to 12 cm. There was negative aspiration for blood and CSF in the catheter and negative response to a test dose of 3 ml 1.5% lidocaine w/ Epi and a sterile dressing was applied Patient tolerated the procedure well and there were no immediate complications noted.
[2021-12-16] MEDS ORDERED: LIDOCAINE (2%) 20 MG/1 ML VIAL 20 ML MDV INFILTRATI ONE (17:29)
[2021-12-16] MEDS ORDERED: FAMOTIDINE 20 MG/2 ML INJ IV ONE (18:32)
[2021-12-16] MEDS ORDERED: METOCLOPRAMIDE 10 MG/2 ML INJ IV ONE (18:32)
[2021-12-16] MEDS ORDERED: BICITRA ORAL LIQD 30ML PO ONE (18:32)
--- NOTE | 2021-12-16 18:32 | Event Note ---
Date: 12/16/21 The patient is currently requesting to proceed with a primary delivery. We have experienced difficulty with pain management with the patient. The tracing is demonstrating evidence of intermittent late decelerations. The patient remains 8 cm/0 station. The risk and benefits of the procedure have been explained to the patient. She has elected to proceed with a primary delivery.
[2021-12-16] MEDS ORDERED: LACTATED RINGERS 1,000 ML IV SCH (18:45)
--- NOTE | 2021-12-16 18:50 | Procedure Note ---
OB Delivery Note - Delivery Date of Delivery: 12/16/21 Surgeon: DEEPTI HECTOR Estimated blood loss: other (qbl 839ml) - Section Preop diagnosis: nonreassuring FHR tracing Postop diagnosis: same section procedure: section, primary low transverse Disposition: PACU Complications: none - Infant A at 1 minute: 8 at 5 minutes: 9 Gender: Male (weight 8lbs 15oz)
--- NOTE | 2021-12-16 18:50 | Operative Report ---
Operative Report Operative Report: Date of surgery: December 16, 2021 Preoperative diagnosis: at 38+5 weeks; intolerance to labor; nonreas suring heart rate tracing Postoperative diagnosis: Same as above Procedure: Primary delivery Surgeon: Jovana Alexis M.D. Anesthesia: Regional Estimated blood loss:Qbl 839ml Findings: Liveborn male with Apgars of 8 and 9 weight 8 pounds 15 ounces Indications: 41-year-old -0-0-3 at 38+5 weeks being induced for gestational diabetes noncompliant with care plan. The fetus is also large for gestational age. During the intrapartum course the patient adamantly requested to proceed with a delivery and did not want to continue her induction. Procedure: The patient was taken to the operating room and given regional anesthesia without complication. She was prepped and draped in a normal sterile fashion. A Pfannenstiel skin incision was made down to layer the fascia which was nicked in the midline extended laterally with the Bovie cautery. The superior aspect of the rectus fascia was grasped with Luna clamps x2 and the rectus muscles off sharply. This was done in inferior fashion as well. The rectus muscle midline and peritoneum entered bluntly. An Collin retractor was then inserted. A bladder blade was placed. The vesicouterine peritoneum was then entered sharply with Metzenbaum scissors. A bladder flap was created digitally. A low transverse uterine incision was then made and extended digitally. There was clear fluid upon entry into the uterine cavity. The head was delivered through the incision with fundal pressure. The cord was clamped and cut x2 and infant was passed off to pediatrics. The placenta was then manually extracted. The uterus was then exteriorized and cleared of clots and debris. The uterine incision was then closed in a running locked fashion with 0 Vicryl additional imbricating stitch was applied for 2 layer closure. The posterior cul-de-sac was then copiously irrigated. The uterus was replaced back into the abdomen and pelvis were the gutters were then irrigated. The Collin retractor was then removed. The peritoneum was then reapproximated with 3-0 Vicryl incorporating the rectus muscle. The fascia was then closed with 0 Vicryl in a running fashion. The skin was then reapproximated with 3-0 Monocryl on a Mikey needle subcuticular fashion. Steri-Strips to place across the incision and a Crede procedures performed at the end of the surgery. A pressure dressing was applied to the incision. The surgery productive of a liveborn male with Apgars of 8 and 9 weight 8 pounds 15 ounces. The patient was taken to the recovery room in stable condition. All sponge laps and needle counts correct x2.
[2021-12-16] MEDS ORDERED: LANOLIN/ZINC/DIMETHICONE (LANSINOH) 7 GM TP PRN (18:51)
[2021-12-16] MEDS ORDERED: MORPHINE 4 MG/1 ML INJ IV PRN ×2 (18:51→20:06)
[2021-12-16] MEDS ORDERED: WITCH HAZEL/ GLYCERIN PAD TP PRN (18:51)
[2021-12-16] MEDS ORDERED: ACETAMINOPHEN 325 MG TAB PO PRN (18:51)
[2021-12-16] MEDS ORDERED: SIMETHICONE 80 MG CHEW TAB PO PRN (18:51)
[2021-12-16] MEDS ORDERED: OXYTOCIN DRIP 30 UNITS/500 ML BAG IV SCH ×2 (19:00)
[2021-12-16] MEDS ORDERED: ceFAZolin/Water 2 GM/20 ML 2 GM/20 ML SYRINGE IV NR (19:00)
[2021-12-16] MEDS ORDERED: SODIUM CHLORIDE 0.9% IRR 1,500 ML BOTTLE IR ONE (19:14)
[2021-12-16] MEDS ORDERED: WATER FOR IRRIG STERILE 1,500 ML BOTTLE IR ONE (19:14)
[2021-12-16] MEDS ORDERED: ceFAZolin/STERILE WATER 2 GM/20 ML SYRINGE IV ONE (19:14)
[2021-12-16] MEDS ORDERED: ONDANSETRON 4 MG/2 ML INJ IV PRN (20:06)
[2021-12-16] MEDS ORDERED: HYDROmorphone 1 MG/1 ML INJ IV PRN ×2 (20:06)
[2021-12-16] MEDS ORDERED: PROMETHAZINE 25 MG RECT SUPP PR PRN (20:06)
[2021-12-16] MEDS ORDERED: PROMETHAZINE 25 MG TAB PO PRN (20:06)
--- NOTE | 2021-12-16 21:31 | Progress Note ---
Spinal Anesthesia Block - Spinal Anesthesia Block Start Time: 18:53 Stop Time: 18:59 Performed by:: DEBORAH COOL Procedure: The patient was placed in a sitting position on the OR table and monitors applied. A timeout was performed immediately prior to the start of the procedure. The patient was Prepped and draped in a sterile fashion and the skin was localized with 3 mL 1% lidocaine at L[4]-L[5] interspace. An introducer was placed into the back between L4-L5 and a 25g spinal needle was advanced into the intrathecal space until clear, free flowing CSF was observed. 1.8cc of 0.75% hyperbaric bupivacaine + 0.5mcg Precedex was injected into the intrathecal space and the spinal needle was removed. The patient tolerated the procedure well and there were no immediate complications noted.
--- NOTE | 2021-12-16 21:33 | Progress Note ---
Labor Epidural - Labor Epidural Start Time: 16:45 Stop Time: 16:51 Performed by:: DEBORAH COOL Procedure: First epidural became dislodged and required another epidural at pts request. Patient was placed in a sitting position with monitors applied. The PTs back was prepped and draped in usual sterile fashion. The Skin was localized with 3 mL of 1% lidocaine at L3-L4. A 17-gauge Touhy epidural needle was advanced to ANN with saline at 7 cm and no blood/CSF was noted via epidural needle. Epidural catheter was advanced to 12 cm. There was negative aspiration for blood and CSF in the catheter and negative response to a test dose of 3 ml 1.5% lidocaine w/ Epi and a sterile dressing was applied Patient tolerated the procedure well and there were no immediate complications noted.
[2021-12-17] MEDS: KETOROLAC 30 MG/1 ML INJ IV PRN ×2 (01:02→07:39)
[2021-12-17] MEDS: oxyCODONE /ACETAMINOPHEN 5-325MG TAB PO PRN ×3 (04:46→23:50)
[2021-12-17] MEDS ORDERED: D5W/LACTATED RINGERS 1,000 ML IV SCH (05:00)
[2021-12-17] MEDS ORDERED: LACTATED RINGERS 1,000 ML IV SCH (05:00)
[2021-12-17] MEDS: IBUPROFEN 600 MG TAB PO PRN ×2 (07:57→16:15)
[2021-12-17 09:21] LABS: Hematocrit 26.6 % (30.3-42.9); Hemoglobin 8.6 gm/dl (10.1-14.3)
--- NOTE | 2021-12-17 11:08 | Post Anesthesia Evaluation ---
- Post Anesthesia Evaluation Patient Participated: Yes Airway Patent: Yes Stable Respiratory Function: Yes Nausea/Vomiting: No Temp > 96.8F: Yes Pain Manageable: Yes Adequeate Hydration: Yes Anesthesia Complications: No Block Receding Appropriately: Yes Patient on Ventilator: No
--- NOTE | 2021-12-17 11:36 | Progress Note ---
Assessment and Plan - Patient Problems (1) GDM (gestational diabetes mellitus) Current Visit: Yes Status: Acute Qualifiers: Gestational diabetes mellitus control: unspecified Trimester: third trimester Qualified Code(s): O24.419 - Gestational diabetes mellitus in , unspecified control Plan to address problem: Continue to monitor blood glucose levels Elevated glucose level this AM (2) Obesity affecting Current Visit: Yes Status: Acute (3) Sickle cell trait Current Visit: Yes Status: Acute (4) Status post primary low transverse section Current Visit: Yes Status: Acute Plan to address problem: Continue routine PP orders Keep dressing clean and dry, remove on POD#2 Anticipate d/c home in 24 - 48hrs if stable (5) COVID-19 determined by clinical diagnostic criteria Current Visit: Yes Status: Acute Plan to address problem: Maintain precautions Subjective - Subjective Date of service: 12/17/21 Principal diagnosis: S/P primary C/S; POD#1; GDM; MO Interval history: 41yo, @ 38.4 wks, initiated care with [facility] punch press setter at 11.4 wks gestation. has been complicated by GDM (non-compliant with glucose monitoring, does not accept diagnosis), +anti-M Ab screen (initial titer 0, declined repeat at 28 wks), AMA, uterine fibroid, LGA fetus, sickle cell trait and obesity. Presents to [facility] for scheduled IOL secondary to GDM, LGA and obesity. Reports +FM. Denies any VB or LOF. Labs: A+, antibody positive; rubella immune; VDRL negative; urine culture negative; HB sAg negative; HIV negative; HSV2 negative; GC/Chlamydia/Trichomonas negative; 1 hr gtt - 193, 3 hr gtt - 76, 189, 160, 109; GBS negative. Delivered viable male infant via primary C/S secondary to failure to descend. Patient reports: appetite normal (clear liquid diet), voiding normally, pain well controlled (with medications), ambulating normally, no flatus, no bowel movement [place]: bottle feeding (and breast feeding) Objective - Vital Signs Latest vital signs: Vital Signs Temp Pulse Resp BP BP Pulse Ox Pulse Ox 12/17/21 08:27 97.7 F 94 H 20 130/78 98 12/17/21 08:00 99 12/17/21 05:46 98.2 F 96 H 20 119/72 97 12/17/21 05:10 97 12/17/21 03:30 98 12/17/21 01:30 98 12/16/21 23:30 98 12/16/21 22:35 98 12/16/21 22:30 97.8 F 100 H 18 113/69 100 12/16/21 21:10 103 H 21 121/58 99 12/16/21 21:00 97 H 22 112/62 100 12/16/21 20:45 98 H 17 114/62 100 12/16/21 20:30 99 H 16 120/58 99 12/16/21 20:19 101 H 23 117/52 100 12/16/21 20:10 101 H 18 111/50 100 12/16/21 20:05 101 H 20 115/59 100 12/16/21 20:00 97.1 F L 12/16/21 18:44 114 H 93 12/16/21 18:43 112 H 109/61 12/16/21 18:42 116 H 96 12/16/21 18:38 108 H 139/77 92 12/16/21 18:37 106 H 98 12/16/21 18:33 110 H 151/81 12/16/21 18:32 110 H 98 12/16/21 18:28 108 H 149/74 12/16/21 18:27 111 H 98 12/16/21 18:24 109 H 144/75 12/16/21 18:22 105 H 97 12/16/21 18:19 108 H 135/67 93 12/16/21 18:17 109 H 100 12/16/21 18:13 112 H 139/55 12/16/21 18:12 115 H 100 12/16/21 18:09 110 H 134/62 87 12/16/21 18:07 108 H 98 12/16/21 18:04 113 H 172/78 12/16/21 18:02 122 H 93 12/16/21 17:59 109 H 131/75 90 12/16/21 17:57 112 H 100 12/16/21 17:54 113 H 130/67 12/16/21 17:52 105 H 100 12/16/21 17:48 103 H 145/74 12/16/21 17:47 106 H 96 12/16/21 17:43 104 H 145/65 12/16/21 17:42 105 H 100 12/16/21 17:38 104 H 141/68 12/16/21 17:37 96 H 100 12/16/21 17:33 96 H 135/65 12/16/21 17:32 107 H 98 12/16/21 17:29 103 H 139/72 12/16/21 17:27 109 H 100 12/16/21 17:24 110 H 125/58 12/16/21 17:22 111 H 100 12/16/21 17:18 116 H 137/66 12/16/21 17:17 110 H 100 12/16/21 17:15 104 H 94 12/16/21 17:14 109 H 148/82 12/16/21 17:12 111 H 100 12/16/21 17:08 110 H 146/78 12/16/21 17:07 110 H 100 12/16/21 17:06 115 H 92 12/16/21 17:03 108 H 140/77 12/16/21 17:02 110 H 100 12/16/21 16:58 114 H 140/65 12/16/21 16:57 107 H 98 12/16/21 16:53 118 H 139/61 12/16/21 16:52 81 97 12/16/21 16:50 108 H 87 12/16/21 16:48 101 H 153/71 12/16/21 16:47 111 H 99 12/16/21 16:43 110 H 135/81 92 12/16/21 16:42 115 H 98 12/16/21 16:38 110 H 136/77 12/16/21 16:37 109 H 153/65 96 12/16/21 16:32 109 H 99 12/16/21 16:29 105 H 94 12/16/21 16:28 107 H 141/77 12/16/21 16:27 106 H 98 12/16/21 16:23 107 H 120/68 12/16/21 16:22 101 H 95 12/16/21 16:20 99 H 92 12/16/21 16:19 100 H 134/74 12/16/21 16:17 99 H 98 12/16/21 16:14 101 H 93 12/16/21 16:13 100 H 134/75 12/16/21 16:12 98 H 86 12/16/21 16:08 93 H 138/73 88 12/16/21 16:07 98 H 98 12/16/21 16:04 94 H 126/76 12/16/21 16:03 98 H 93 12/16/21 16:02 95 H 99 12/16/21 15:58 100 H 140/75 12/16/21 15:57 97 H 96 12/16/21 15:54 96 H 144/77 12/16/21 15:52 104 H 98 12/16/21 15:48 99 H 130/76 12/16/21 15:47 102 H 100 12/16/21 15:44 97 H 141/78 12/16/21 15:42 95 H 100 12/16/21 15:38 98 H 132/79 12/16/21 15:37 99 H 99 12/16/21 15:32 111 H 99 12/16/21 15:27 105 H 100 12/16/21 15:22 106 H 100 12/16/21 15:20 111 H 94 12/16/21 15:17 95 H 95 12/16/21 15:12 102 H 100 12/16/21 15:07 102 H 99 12/16/21 15:02 103 H 96 12/16/21 14:57 105 H 100 12/16/21 14:52 104 H 100 12/16/21 14:47 98 H 100 12/16/21 14:42 104 H 100 12/16/21 14:37 113 H 100 12/16/21 14:36 64 90 12/16/21 14:32 106 H 91 12/16/21 14:30 104 H 87 12/16/21 14:27 107 H 92 12/16/21 14:24 103 H 80 L 12/16/21 14:22 103 H 100 12/16/21 14:17 99 H 100 12/16/21 14:12 97 H 100 12/16/21 14:08 95 H 92 12/16/21 14:07 99 H 98 12/16/21 14:03 101 H 93 12/16/21 14:02 101 H 96 12/16/21 13:57 99 H 98 12/16/21 13:52 100 H 100 12/16/21 13:47 93 H 100 12/16/21 13:42 92 H 99 12/16/21 13:37 89 99 12/16/21 13:35 102 H 93 12/16/21 13:32 90 99 12/16/21 13:27 94 H 98 12/16/21 13:22 92 H 98 12/16/21 13:17 90 99 12/16/21 13:12 96 H 98 12/16/21 13:07 89 124/75 97 12/16/21 13:02 99 H 100 12/16/21 12:57 90 97 12/16/21 12:52 101 H 99 12/16/21 12:47 98 H 99 12/16/21 12:42 94 H 98 12/16/21 12:37 98 H 100 12/16/21 12:32 94 H 97 12/16/21 12:27 97 H 98 12/16/21 12:22 93 H 98 12/16/21 12:17 109 H 99 12/16/21 12:15 83 L 12/16/21 12:12 116 H 98 12/16/21 12:09 76 86 12/16/21 11:32 62 L Intake and Output 12/16/21 12/17/21 12/17/21 23:59 07:59 15:59 Intake Total 1500 240 Output Total 800 850 800 Balance 700 -850 -560 Intake: IV 1500 Oral 240 Output: Urine 800 850 800 Indwelling 400 Indwelling Catheter 850 Void 800 Other: Total, Intake Amount 240 Total, Output Amount 200 800 Estimated Blood Loss 150 - Exam Breasts: Present: normal Cardiovascular: Present: Regular rate Lungs: Present: Normal air movement Abdomen: Present: soft, tenderness Uterus: Present: firm, fundal height below umbilicus (U-2) Extremities: Present: edema Deep Tendon Reflex Grade: Normal +2 Incision: Present: dressed (no shadow drainage or bleeding noted) - Labs Labs: Abnormal lab results 12/17/21 12/17/21 Range/Units 08:40 10:57 Hgb 8.6 L (10.1-14.3) gm/dl Hct 26.6 L D (30.3-42.9) % POC Glucose 208 H (70-105) mg/dL
[2021-12-17] MEDS ORDERED: INSULIN REGULAR, HUMAN 100 UNITS/1 ML SUB-Q ONE (12:00)
[2021-12-18] MEDS: IBUPROFEN 600 MG TAB PO PRN ×2 (05:32→21:36)
[2021-12-18] MEDS: oxyCODONE /ACETAMINOPHEN 5-325MG TAB PO PRN ×2 (09:25→14:50)
--- NOTE | 2021-12-18 15:13 | Progress Note ---
Assessment and Plan - Patient Problems (1) GDM (gestational diabetes mellitus) Current Visit: Yes Status: Acute Qualifiers: Gestational diabetes mellitus control: unspecified Trimester: third trimester Qualified Code(s): O24.419 - Gestational diabetes mellitus in , unspecified control Plan to address problem: Refusing any further blood glucose level monitoring (2) Obesity affecting Current Visit: Yes Status: Acute (3) Sickle cell trait Current Visit: Yes Status: Acute (4) Status post primary low transverse section Current Visit: Yes Status: Acute Plan to address problem: Continue routine PP orders Shower, remove dressing Anticipate d/c home in 24 hrs if stable (5) COVID-19 determined by clinical diagnostic criteria Current Visit: Yes Status: Acute Plan to address problem: Maintain precautions Subjective - Subjective Date of service: 12/18/21 Principal diagnosis: S/P primary C/S; POD#2; GDM; [place] Interval history: 41yo, @ 38.4 wks, initiated care with [facility] print line tailer at 11.4 wks gestation. has been complicated by GDM (non-compliant with glucose monitoring, does not accept diagnosis), +anti-M Ab screen (initial titer 0, declined repeat at 28 wks), AMA, uterine fibroid, LGA fetus, sickle cell trait and obesity. Presents to [facility] for scheduled IOL secondary to GDM, LGA and obesity. Reports +FM. Denies any VB or LOF. Labs: A+, antibody positive; rubella immune; VDRL negative; urine culture negative; HBsAg negative; HIV negative; HSV2 negative; GC/Chlamydia/Trichomonas negative; 1 hr gtt - 193, 3 hr gtt - 76, 189, 160, 109; GBS negative. Delivered viable male infant via primary C/S secondary to failure to descend. Doing well on POD#2. Patient reports: appetite normal, voiding normally, pain well controlled (with medications), flatus, ambulating normally, no bowel movement : doing well, nursing well Objective - Vital Signs Latest vital signs: Vital Signs Temp Pulse Resp BP Pulse Ox Pulse Ox 12/18/21 09:25 20 12/18/21 09:08 98.2 F 84 18 129/76 99 12/18/21 08:30 98 12/17/21 23:54 98.2 F 104 H 20 103/68 100 12/17/21 19:29 97 12/17/21 19:11 97.9 F 108 H 18 123/69 97 Intake and Output 12/17/21 12/18/21 12/18/21 23:59 07:59 15:59 Intake Total 1080 240 240 Balance 1080 240 240 Intake: Oral 840 240 240 Intake, Free Water 240 Other: Total, Intake Amount 840 240 240 # Voids Void 3 1 1 - Exam Breasts: Present: normal Cardiovascular: Present: Regular rate Lungs: Present: Normal air movement Abdomen: Present: soft, tenderness Uterus: Present: firm, fundal height below umbilicus (U-2) Extremities: Present: edema Deep Tendon Reflex Grade: Normal +2 Incision: Present: dressed (no shadow drainage or bleeding noted) - Labs Labs: Abnormal lab results 12/17/21 Range/Units 21:40 POC Glucose 134 H (70-105) mg/dL
[2021-12-19] MEDS: oxyCODONE /ACETAMINOPHEN 5-325MG TAB PO PRN (05:53)
--- NOTE | 2021-12-19 07:56 | Progress Note ---
Assessment and Plan A: POD#3 s/p primary at term GDM AMA Morbid Obesity COVID-19 positive P: Routine postoperative care Discharge today with follow-up in 2 weeks or with a negative test at least 5 days after initial positive without symptoms Subjective - Subjective Date of service: 12/19/21 Principal diagnosis: S/P primary C/S; POD#3; GDM; MO Interval history: Patient has no complaints overnight. Decreasing lochia. Plus flatus. No bowel movement. Voiding without difficulty. Patient reports: appetite normal, voiding normally, pain well controlled, flatus, ambulating normally, no bowel movement : doing well Objective - Vital Signs Latest vital signs: Vital Signs Temp Pulse Resp BP Pulse Ox Pulse Ox 12/19/21 06:30 98 12/19/21 05:53 18 12/19/21 05:45 98 12/19/21 01:16 98.3 F 93 H 20 120/74 99 12/18/21 23:00 99 12/18/21 22:35 98 12/18/21 21:36 18 98 12/18/21 19:25 98 12/18/21 17:42 98.0 F 100 H 18 115/75 98 12/18/21 09:25 20 12/18/21 09:08 98.2 F 84 18 129/76 99 12/18/21 08:30 98 Intake and Output 12/18/21 12/19/21 12/19/21 22:59 06:59 14:59 Intake Total 1200 500 Balance 1200 500 Intake: Oral 360 500 Intake, Free Water 840 Other: Total, Intake Amount 360 500 # Voids Void 3 3 - Exam Breasts: Present: deferred Abdomen: Present: soft (obese) Uterus: Present: fundal height at umbilicus Extremities: Present: edema (trace) Incision: Present: intact (with steristrips )
[2021-12-19] MEDS ORDERED: LACTULOSE 20 GM/30 ML ORAL LIQD PO NR (07:58)
--- NOTE | 2021-12-19 07:58 | Discharge Summary ---
Providers - Providers Date of Admission: 12/15/21 09:05 Date of discharge: 12/19/21 Attending physician: VERÓNICA MCCORMICK Primary care physician: VERÓNICA MCCORMICK Hospitalization Reason for admission: induction of labor Delivery: Procedure: section, primary low transverse Procedure details: Please see operative report Episiotomy: none Laceration: none Incision: intact Other procedures: none complications: none Discharge diagnosis: IUP at term delivered [place] baby: male Hospital course: Patient was admitted for induction of labor secondary to poorly controlled gestational diabetes. She ultimately underwent a primary section which he tolerated well. Her postoperative course was complicated by incidental finding of COVID-19 positive status. The remainder of her postoperative course was uncomplicated and she met discharge criteria on postoperative day #3. She will follow-up in the office in 2 weeks for incision check. Condition at discharge: Stable Disposition: 01 HOME / SELF CARE / HOMELESS - Discharge Diagnoses (1) COVID-19 determined by clinical diagnostic criteria Status: Acute (2) GDM (gestational diabetes mellitus) Status: Acute Qualifiers: Gestational diabetes mellitus control: unspecified Trimester: third trimester Qualified Code(s): O24.419 - Gestational diabetes mellitus in , unspecified control (3) LGA (large for gestational age) fetus Status: Acute (4) Obesity affecting Status: Acute Qualifiers: Trimester: third trimester Qualified Code(s): O99.213 - Obesity complicating , third trimester (5) Status post primary low transverse section Status: Acute (6) Advanced maternal age (AMA) in Status: Acute (7) Anemia Status: Acute Qualifiers: Anemia type: unspecified type Qualified Code(s): D64.9 - Anemia, unspecified Plan - Discharge Medications Prescriptions: Ferrous Sulfate [Feosol 325 MG tab] 325 mg PO BID #60 tablet Ibuprofen [Motrin] 800 mg PO Q8HR PRN #60 tablet PRN Reason: Pain , Severe (7-10) oxyCODONE /ACETAMINOPHEN [Percocet 5/325] 1 tab PO Q6HR PRN #30 tablet PRN Reason: Pain - Provider Discharge Summary Activity: routine, no sex for 6 weeks, no heavy lifting 4 weeks, no strenuous exercise Diet: routine Instructions: routine Additional instructions: [] Smoking cessation referral if applicable(refer to patient education folder for contact #) [] Refer to [facility] Booklet Call your doctor immediately for: * Fever > 100.5 * Heavy vaginal bleeding ( >1 pad per hour) * Severe persistent headache * Shortness of breath * Reddened, hot, painful area to leg or breast * Drainage or odor from incision. * Keep incision clean and dry at all times and follow doctor's instructions regarding bathing/showering - Follow up plan Follow up: VERÓNICA MCCORMICK MD [Primary Care Provider] - 14 Days (Please schedule incision check)
[2021-12-19] MEDS: IBUPROFEN 600 MG TAB PO PRN (13:50)
[2021-12-19 15:42] VITALS: BP 132/84
== END 2021-12-19 15:30 | disposition home or self-care (01) | DRG 786 ==
LOC: UNDOADMIN 08:23 → LD 08:23 → APU 12-16 19:03 → OB 12-16 23:02
PROVIDERS: ADMIT Obstetrics & Gynecology; ATTEND Obstetrics & Gynecology
PROC: 10D00Z1 Extraction of Products of Conception, Low, Open Approach (ICD-10-PCS; principal; 2021-12-16)
DX: O76 Abnormality in fetal heart rate and rhythm complicating labor and delivery (principal); U07.1 COVID-19; O98.52 Other viral diseases complicating childbirth; O24.429 Gestational diabetes mellitus in childbirth, unspecified control; Z3A.38 38 weeks gestation of pregnancy; O36.63X0 Maternal care for excessive fetal growth, third trimester, not applicable or unspecified; Z37.0 Single live birth; O99.02 Anemia complicating childbirth; D57.3 Sickle-cell trait; O99.214 Obesity complicating childbirth; E66.01 Morbid (severe) obesity due to excess calories
CPT/HCPCS: 36415; 82962; 85014; 85018; 85027; 86850; 86900; 86901; G0378; J3490; J7060; J0690; J1885; J2590; J7120; J7121; U0003